=== PATIENT | female | born 1995 | race American Indian/Alaskan Native ===

== ENCOUNTER 2021-07-08 02:27 | Emergency (ER) | payer OTHER ==
[2021-07-08 02:35] VITALS: BP 106/70
[2021-07-08] MEDS ORDERED: ACETAMINOPHEN 500 MG TAB PO ONE (04:33)
[2021-07-08] MEDS ORDERED: IBUPROFEN 600 MG TAB PO ONE (04:33)
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
== END 2021-07-08 05:10 | disposition home or self-care (01) ==
LOC: ED 02:27
DX: S29.012A Strain of muscle and tendon of back wall of thorax, initial encounter (principal); S46.912A Strain of unspecified muscle, fascia and tendon at shoulder and upper arm level, left arm, initial encounter; S86.912A Strain of unspecified muscle(s) and tendon(s) at lower leg level, left leg, initial encounter; V89.2XXA Person injured in unspecified motor-vehicle accident, traffic, initial encounter; Y93.89 Activity, other specified; Y92.89 Other specified places as the place of occurrence of the external cause; Y99.8 Other external cause status
CPT/HCPCS: 99282